=== PATIENT | female | born 1990 | race African-American/Black ===

== ENCOUNTER 2020-08-13 05:01 | Inpatient (IN) ==
[2020-08-13] MEDS ORDERED: CITRIC ACID/SODIUM CITRATE 30 ML UDCUP PO ONE (05:15)
[2020-08-13] MEDS ORDERED: ceFAZolin 2,000 MG/50 ML DUPLEX IV ONE (05:15)
[2020-08-13] MEDS ORDERED: FAMOTIDINE 20 MG/2 ML VIAL IV ONE (05:15)
[2020-08-13] MEDS: LACTATED RINGERS 1,000 ML IV SCH ×4 (05:40→21:19)
[2020-08-13 05:45] LABS: Basophils % 0.3 % (0.0-0.8); Eosinophils # 0.1 10*3/uL (0.0-0.87); Eosinophils % 0.5 % (0.00-10.9); Hematocrit 35.2 VOL% (35.7-47.0); Hemoglobin 10.8 GM/DL (12.0-16.0); Immature Granulocytes % 0.8 %; Lymphocytes # 3.5 10*3/uL (1.4-4.0); Lymphocytes % 26.6 % (21.3-54.2); Mean Corpuscular HGB Conc 30.7 GM/DL (32-36); Mean Corpuscular Volume 74.3 FL (87-102); Mean Platelet Volume 9.7 FL (9.6-12.0); Monocytes % 5.7 % (1.7-12.7); Neutrophils % 66.1 % (38.7-73.9); Platelet Count 416 T/CUMM (130-400); Red Blood Count 4.74 MC/CUMM (3.8-5.5); Red Cell Distribution Width 16.2 % (9.3-17.3); White Blood Count 13.1 T/CUMM (4-12)
[2020-08-13 06:04] LABS: Eosinophils 2 % (0-10); Hypochromasia 1+; Lymphocytes 28 % (20-55); Microcytosis 1+; Platelet Estimate Adequate; Segmented Neutrophils 61 % (50-85); Total Cells Counted 100
[2020-08-13 06:07] LABS: Alanine Aminotransferase 12 U/L (13-56); Albumin 2.4 G/DL (3.4-5.0); Alkaline Phosphatase 252 U/L (45-117); Aspartate Amino Transferase 5 U/L (0-37); Bilirubin,Total < 0.39 MG/DL (0.2-1.0); Blood Urea Nitrogen 7 MG/DL (7-18); Calcium 8.5 MG/DL (8.5-10.1); Carbon Dioxide 26 MMOL/L (21-32); Estimated Glom Filtration Rate 165 ML/MIN; Glucose 93 MG/DL (74-106); Osmolality,Calculated 274.5 MOS/KG (273-304); Potassium 3.6 MMOL/L (3.5-5.1); Sodium 139 MMOL/L (136-145); Total Protein 6.9 G/DL (6.4-8.2)
[2020-08-13] MEDS ORDERED: ONDANSETRON 4 MG/2 ML VIAL ONE (06:43)
[2020-08-13] MEDS ORDERED: BUPIVACAINE SPINAL 0.75% 2 ML AMP SPINAL ONE (06:43)
[2020-08-13] MEDS ORDERED: OXYTOCIN/LR 20 UNIT/1,000 ML BAG IV ONE ×2 (06:58→08:41)
[2020-08-13] MEDS ORDERED: miSOPROStoL 200 MCG TABLET ONE (06:58)
[2020-08-13] MEDS ORDERED: CARBOPROST TROMETHAMINE 250 MCG/ML AMP IM ONE (06:59)
[2020-08-13] MEDS ORDERED: METHYLERGONOVINE 0.2 MG/1 ML AMP ONE (06:59)
[2020-08-13 07:03] LABS: INR 0.9; PT Patient Result 10.6 SECS (10.5-12.0); Partial Thromboplastin Time 27.4 SECS (23.9-33.8)
[2020-08-13] MEDS ORDERED: PHENYLEPHRINE 1 MG/10 ML SYRINGE IV ONE (07:56)
[2020-08-13] MEDS ORDERED: GLYCOPYRROLATE 0.4 MG/2 ML VIAL ONE (07:56)
[2020-08-13 08:19] LABS: Cord Arterial Blood HCO3 27.2 MMOL/L
[2020-08-13 08:20] LABS: Cord Venous Blood HCO3 23.6 MMOL/L; Cord Venous Blood PCO2 55.7 MMHG; Cord Venous Blood PO2 24.4
[2020-08-13 08:25] LABS: Bacteria,Urine Occasional /HPF (Few); Bilirubin,Urine Negative (Negative); Blood, Urine Negative (Negative); Glucose,Urine (UA) Negative (Negative); Ketones,Urine Negative (Negative); Mucus,Urine Moderate /LPF (Occasional); Nitrite,Urine Negative (Negative); Protein,Urine Negative; RBC,Urine <1 /HPF (0-4); Squamous Epithelial Cell,Urine Occasional /HPF (0-10); Urine Appearance CLEAR (Clear); Urine Color Yellow (Yellow); Urine Specific Gravity 1.023 (1.001-1.035)
[2020-08-13] MEDS ORDERED: ACETAMINOPHEN INJ 1,000 MG/100 ML VIAL IV ONE (08:29)
[2020-08-13] MEDS ORDERED: HYDROCORTISONE 2.5% RECTAL CREAM 30 GM TUBE TOP PRN (08:41)
[2020-08-13] MEDS ORDERED: oxyCODONE/ACETAMINOPHEN 5-325 MG TABLET PO PRN (08:41)
[2020-08-13] MEDS ORDERED: MEASLES/MUMPS/RUBELLA VACCINE 0.5 ML VIAL SUBCUT ONE (08:41)
[2020-08-13] MEDS ORDERED: DIPH/TET/ACEL PERT BOOSTER VACCINE 0.5 ML VIAL IM ONE (08:41)
[2020-08-13] MEDS ORDERED: RHO(D) IMMUNE GLOBULIN 300 MCG SYRINGE IM ONE (08:41)
[2020-08-13] MEDS ORDERED: BISACODYL 10 MG SUPP RECTAL PRN (08:41)
[2020-08-13] MEDS ORDERED: LANOLIN 50% CREAM 0.3 OZ TUBE TOP PRN (08:41)
[2020-08-13] MEDS ORDERED: ONDANSETRON 4 MG/2 ML VIAL IV PRN (08:41)
[2020-08-13] MEDS ORDERED: ACETAMINOPHEN 325 MG TABLET PO PRN (08:41)
[2020-08-13] MEDS ORDERED: WITCH HAZEL PADS 100/JAR TOP PRN (08:41)
[2020-08-13] MEDS ORDERED: BENZOCAINE 20%/MENTHOL 0.5% SPRAY 56 GM CAN TOP PRN (08:41)
[2020-08-13] MEDS ORDERED: HYDROmorphone 2 MG/1 ML VIAL IV ONE (10:00)
[2020-08-13] MEDS ORDERED: diphenhydrAMINE CAP 25 MG CAPSULE ONE (11:12)
[2020-08-13] MEDS: diphenhydrAMINE CAP 25 MG CAPSULE PO PRN ×2 (11:26→18:21)
[2020-08-13] MEDS: ACETAMINOPHEN 500 MG TABLET PO SCH ×2 (14:31→20:10)
[2020-08-13] MEDS: KETOROLAC 30 MG/1 ML VIAL IV SCH ×2 (14:33→20:11)
[2020-08-13] MEDS: FERROUS SULFATE 325 MG TABLET PO SCH (18:19)
[2020-08-13] MEDS: DOCUSATE SODIUM 100 MG CAPSULE PO SCH (20:10)
[2020-08-13] MEDS: SIMETHICONE CHEW 80 MG TABLET PO PRN (20:11)
[2020-08-13] MEDS ORDERED: hydrOXYzine HCL 25 MG/1 ML VIAL IM PRN (20:30)
[2020-08-14] MEDS: SIMETHICONE CHEW 80 MG TABLET PO PRN ×2 (01:58→08:21)
[2020-08-14] MEDS: KETOROLAC 30 MG/1 ML VIAL IV SCH (01:59)
[2020-08-14] MEDS: ACETAMINOPHEN 500 MG TABLET PO SCH ×2 (01:59→10:26)
[2020-08-14 05:18] LABS: Basophils % 0.4 % (0.0-0.8); Eosinophils # 0.1 10*3/uL (0.0-0.87); Eosinophils % 0.8 % (0.00-10.9); Hematocrit 28.2 VOL% (35.7-47.0); Immature Granulocytes % 0.5 %; Immature Granulocytes Absolute 0.05 #; Lymphocytes # 2.9 10*3/uL (1.4-4.0); Lymphocytes % 27.3 % (21.3-54.2); Mean Corpuscular HGB Conc 31.2 GM/DL (32-36); Mean Corpuscular Volume 72.1 FL (87-102); Mean Platelet Volume 9.8 FL (9.6-12.0); Monocytes % 6.2 % (1.7-12.7); Neutrophils % 64.8 % (38.7-73.9); Red Blood Count 3.91 MC/CUMM (3.8-5.5); Red Cell Distribution Width 15.6 % (9.3-17.3); White Blood Count 10.7 T/CUMM (4-12)
[2020-08-14 05:28] LABS: Hemoglobin 8.8 GM/DL (12.0-16.0); Platelet Count 314 T/CUMM (130-400)
[2020-08-14 05:40] LABS: Band Neutrophils 1 % (0-10); Eosinophils 1 % (0-10); Hypochromasia 1+; Lymphocytes 29 % (20-55); Microcytosis 1+; Platelet Estimate Adequate; Segmented Neutrophils 68 % (50-85); Total Cells Counted 100
[2020-08-14] MEDS: FERROUS SULFATE 325 MG TABLET PO SCH (08:22)
[2020-08-14] MEDS: DOCUSATE SODIUM 100 MG CAPSULE PO SCH ×4 (08:22→23:55)
[2020-08-14] MEDS ORDERED: FERROUS SULFATE 325 MG TABLET PO SCH (09:00)
[2020-08-14] MEDS: LACTATED RINGERS 1,000 ML IV SCH (10:27)
[2020-08-14] MEDS: IBUPROFEN 800 MG TABLET PO PRN ×2 (10:44→19:51)
[2020-08-14] MEDS: oxyCODONE/ACETAMINOPHEN 5-325 MG TABLET PO PRN ×2 (10:48→19:50)
[2020-08-15] MEDS: oxyCODONE/ACETAMINOPHEN 5-325 MG TABLET PO PRN (06:15)
[2020-08-15] MEDS: DOCUSATE SODIUM 100 MG CAPSULE PO SCH (10:07)
[2020-08-15] MEDS: FERROUS SULFATE 325 MG TABLET PO SCH (10:07)
[2020-08-15] MEDS: SIMETHICONE CHEW 80 MG TABLET PO PRN (10:07)
[2020-08-15 15:08] VITALS: BP 110/65
== END 2020-08-15 12:41 | disposition home or self-care (01) | DRG 539 ==
LOC: N.LD 05:01 → N.OB 10:20
PROVIDERS: ADMIT Specialist; ATTEND Specialist